=== PATIENT | male | born 1980 | race Hispanic/Latino ===

== ENCOUNTER 2018-01-10 06:01 | Day surgery (SDC) | payer MEDICARE ==
[2018-01-10] VITALS (8 sets, daily range): BP systolic 86–92; BP diastolic 53–57
[~2018-01-10] VITALS: Ht 177.8 cm; Wt 112.0 kg
[2018-01-10] MEDS ORDERED: VITAMIN C (07:37)
[2018-01-10] MEDS ORDERED: POT CHLORIDE (07:37)
[2018-01-10] MEDS ORDERED: MAGNESIUM OXIDE (07:37)
[2018-01-10] MEDS ORDERED: SPIRONOLACTONE PO (07:37)
[2018-01-10] MEDS ORDERED: MULTIVITAMIN (07:37)
[2018-01-10] MEDS ORDERED: FOLIC ACID (07:37)
[2018-01-10] MEDS ORDERED: LEVOTHYROXINE (07:37)
[2018-01-10] MEDS ORDERED: CO Q 10 (07:37)
[2018-01-10] MEDS ORDERED: FUROSEMIDE PO (07:37)
[2018-01-10] MEDS ORDERED: LORATADINE (07:37)
[2018-01-10] MEDS ORDERED: TYLENOL WITH CODEINE (07:37)
[2018-01-10] MEDS ORDERED: lactulose PO (07:37)
[2018-01-10] MEDS ORDERED: SUCR1TAB2 PO (07:37)
[2018-01-10] MEDS ORDERED: LORAZEPAM (07:37)
[2018-01-10] MEDS ORDERED: METOLAZONE (07:37)
[2018-01-10] MEDS ORDERED: NEXIUM (07:37)
[2018-01-10] MEDS ORDERED: ASA (07:37)
[2018-01-10] MEDS ORDERED: IRON (07:37)
[2018-01-10] MEDS ORDERED: SODIUM CHLORIDE 0.9% 1000ML 1,000 ML IV ONE (07:41)
[2018-01-10] MEDS ORDERED: PROPOFOL 10 MG/ML 20ML VIAL IV ONE (07:52)
[2018-01-10] MEDS ORDERED: GLYCOPYRROLATE 0.2 MG/ML 5 ML VIAL ONE (08:00)
== END 2018-01-10 08:55 | disposition home or self-care (01) ==
LOC: DAH 06:01
PROVIDERS: ATTEND Internal Medicine
DX: K21.0 Gastro-esophageal reflux disease with esophagitis (principal); K31.89 Other diseases of stomach and duodenum; K29.50 Unspecified chronic gastritis without bleeding; K74.60 Unspecified cirrhosis of liver; E03.9 Hypothyroidism, unspecified; J45.909 Unspecified asthma, uncomplicated; D50.9 Iron deficiency anemia, unspecified; Z90.49 Acquired absence of other specified parts of digestive tract; Z83.3 Family history of diabetes mellitus; Z79.899 Other long term (current) drug therapy; Z79.82 Long term (current) use of aspirin; Z82.49 Family history of ischemic heart disease and other diseases of the circulatory system; Z90.3 Acquired absence of stomach [part of]; Z88.8 Allergy status to other drugs, medicaments and biological substances
CPT/HCPCS: 36415; 43239; 84132; 88305; 93005; A4606; J2704; J3490; J7030

== ENCOUNTER → 2018-02-06 | Outpatient (CLI) | payer MEDICARE ==
[~2018-02-06] MED LIST: ASA; CO Q 10; FOLIC ACID; FUROSEMIDE PO; IRON; LEVOTHYROXINE; LORATADINE; LORAZEPAM; MAGNESIUM OXIDE; METOLAZONE; MULTIVITAMIN; NEXIUM; POT CHLORIDE; SPIRONOLACTONE PO; SUCR1TAB2 PO; TYLENOL WITH CODEINE; VITAMIN C; lactulose PO
== END | disposition home or self-care (01) ==
LOC: RAH 07:45
PROVIDERS: ATTEND Nurse Practitioner Family
DX: M25.562 Pain in left knee (principal)
CPT/HCPCS: 73562

== ENCOUNTER → 2019-08-19 | Outpatient (CLI) | payer MEDICARE | END | disposition home or self-care (01) | LOC: RAH 09:10 | PROVIDERS: ATTEND Internal Medicine Gastroenterology | DX: R16.0 Hepatomegaly, not elsewhere classified (principal); Z90.49 Acquired absence of other specified parts of digestive tract | CPT/HCPCS: 76700; 93975 ==

== ENCOUNTER 2023-04-18 06:25 | Day surgery (SDC) | payer MEDICARE ==
[2023-04-14 09:41] VITALS: BP 100/61; PULSE 77; RESP 18
[2023-04-14 09:42] LABS: BASOPHILS # (AUTO) 0.06 K/uL (0.00-0.20); BASOPHILS % (AUTO) 0.7 % (0.0-5.0); EOSINOPHILS # (AUTO) 0.38 K/uL (0.00-0.70); EOSINOPHILS % (AUTO) 4.6 % (0.0-8.0); HEMATOCRIT 31.7 % (42-54); IMMATURE GRANULOCYTE ABSOLUTE 0.09 K/uL (0-1); LYMPHOCYTES # (AUTO) 1.3 K/uL (1.0-4.8); LYMPHOCYTES % (AUTO) 15.6 % (21.0-51.0); MEAN CORPUSCULAR HGB CONC 32.8 g/dL (32.0-36.0); MEAN CORPUSCULAR VOLUME 97.5 fL (79-99); MONOCYTES # (AUTO) 0.6 K/uL (0.1-1.0); MONOCYTES % (AUTO) 6.6 % (3.0-13.0); NEUTROPHILS # (AUTO) 5.9 K/uL (1.8-7.7); NEUTROPHILS % (AUTO) 71.4 % (40.0-77.0); PLATELET COUNT (AUTO) 217 K/uL (130-400); RED BLOOD CELL COUNT(AUTO) 3.25 MIL/uL (4.50-6.20); RED CELL DISTRIBUTION WIDTH 13.5 % (11.0-15.5); WHITE BLOOD COUNT (AUTO) 8.3 K/uL (4.8-10.8)
[2023-04-14 09:55] LABS: INR 0.98 (0.85-1.15); PROTHROMBIN TIME 11.4 SEC (9.6-11.6)
[2023-04-14 09:56] LABS: PARTIAL THROMBOPLASTIN TIME 27.6 SEC (26.3-35.5)
[2023-04-14 09:57] LABS: ALBUMIN 3.1 g/dL (3.5-5.0); BILIRUBIN,TOTAL 0.7 mg/dL (0.2-1.0); CREATININE 0.9 mg/dL (0.5-1.5); POTASSIUM 4.7 mmol/L (3.5-5.1); TOTAL PROTEIN, SERUM 6.7 g/dL (6.0-8.3)
[2023-04-18] VITALS (16 sets, daily range): BP systolic 90–114; BP diastolic 52–65; PULSE 60–75; RESP 10–18
[~2023-04-18] VITALS: Ht 175.3 cm; Wt 106.0 kg
[~2023-04-18 06:25] MED LIST changes: +AEC81 PO; +AMOX1TAB15 PO; -ASA; -CO Q 10; +FAMO20TA8 PO; +FERR-72 PO; -FOLIC ACID; +FOLIC ACID 1 MG PO; -IRON; +IRON1CAP32 PO; +LEVO125C4 PO; -LEVOTHYROXINE; +LINA290C PO; +LORA-192 PO; -LORATADINE; +LORATADINE PO; -LORAZEPAM; +MAGN400T53 PO; -MAGNESIUM OXIDE; +METO2.5T2 PO; -METOLAZONE; +MIDO10TA PO; -MULTIVITAMIN; -NEXIUM; +OMEP20CA12 PO; -POT CHLORIDE; +POTA-364 PO; -TYLENOL WITH CODEINE; -VITAMIN C; -lactulose PO
[2023-04-18] MEDS ORDERED: LACTATED RINGERS 1000ML 1,000 ML IV ONE (07:39)
[2023-04-18] MEDS ORDERED: MEROPENEM 1 GM VIAL ONE (07:39)
[2023-04-18] MEDS ORDERED: BUPIVACAINE/PF 0.5% 30ML VIAL ONE (08:57)
[2023-04-18] MEDS ORDERED: LIDOCAINE HCL 1% MDV 50ML VIAL ONE (08:57)
[2023-04-18] MEDS ORDERED: LIDOCAINE 1%-EPI 1:100,000 20 ML VIAL ONE (08:58)
[2023-04-18] MEDS ORDERED: FENTANYL CITRATE PF 50 MCG/1 ML 2ML VIAL ONE (09:19)
[2023-04-18] MEDS ORDERED: PROPOFOL 10 MG/ML 20ML VIAL IV ONE (09:19)
[2023-04-18] MEDS ORDERED: MIDAZOLAM HCL 1 MG/ML 2ML VIAL ONE (09:19)
[2023-04-18] MEDS ORDERED: ROCURONIUM BROMIDE 10MG/1ML 5ML VL ONE (09:26)
[2023-04-18] MEDS ORDERED: GLYCOPYRROLATE 1 MG/5 ML SYRINGE ONE (09:59)
== END 2023-04-18 11:50 | disposition home or self-care (01) ==
LOC: DAH 06:25
PROVIDERS: ATTEND Surgery
DX: K60.3 Anal fistula (principal); K62.89 Other specified diseases of anus and rectum; K74.60 Unspecified cirrhosis of liver; E03.9 Hypothyroidism, unspecified; K21.9 Gastro-esophageal reflux disease without esophagitis; J45.909 Unspecified asthma, uncomplicated; D64.9 Anemia, unspecified; I35.8 Other nonrheumatic aortic valve disorders; K64.9 Unspecified hemorrhoids; D50.9 Iron deficiency anemia, unspecified; E66.01 Morbid (severe) obesity due to excess calories; Z68.34 Body mass index [BMI] 34.0-34.9, adult; Z98.84 Bariatric surgery status; Z90.49 Acquired absence of other specified parts of digestive tract
CPT/HCPCS: 80053; 85025; 85610; 85730; 36415; 93005; 46280; 64430; 88304; A6260; A4663; J7120 ×2; J3010; J3490 ×4; J2250; J2704; J0665; J2185; A4930; A4215; A4223; A4222; A4221